=== PATIENT | female | born 1970 | race Caucasian/White ===

== ENCOUNTER 2018-11-10 10:54 | Observation (INO) ==
[2018-11-10] MEDS ORDERED: Aspirin 325 MG TABLET PO ONE (11:17)
[2018-11-10] MEDS ORDERED: Nitroglycerin 0.4 MG TAB.SUBL SL PRN (11:17)
[2018-11-10 11:18] LABS: Basophils # 0.1 K/mcL (0.0-0.2); Basophils % 1.4 %; Eosinophils # 0.1 K/mcL (0.0-0.6); Eosinophils % 2.5 %; Hematocrit 39.4 % (35.3-44.9); Immature Granulocytes % 0.7 % (0-4); Lymphocytes # 1.6 K/mcL (0.6-4.6); Lymphocytes % 28.7 %; Mean Corpuscular Hemoglobin 26.3 pg (28.0-33.3); Mean Corpuscular Volume 79.6 fL (83.0-100.0); Mean Platelet Volume 8.5 fL (9.4-12.4); Monocytes # 0.4 K/mcL (0.0-1.3); Monocytes % 7.6 %; Neutrophils # 3.4 K/mcL (1.6-8.9); Platelet Count 341 K/mcL (140-400); Red Blood Count 4.95 M/mcL (3.82-4.97); Red Cell Distribution Width 14.5 % (11.5-14.5); Segmented Neutrophils % 59.1 %; White Blood Count 5.7 K/mcL (4.3-11.1)
--- NOTE | 2018-11-10 11:27 | Emergency Department Note ---
Disposition Clinical Impression: Hypoxia Chest pain Qualifiers: Chest pain type: unspecified Qualified Code(s): R07.9 - Chest pain, unspecified Disposition: Admitted As Inpatient Condition: Good Referrals: Anastacio Power CNP [Primary Care Provider] - Forms: ED Satisfaction Letter Time of Disposition: 13:05 Chest Pain HPI - General Chief Complaint: ED Chest Pain Stated Complaint: CP Time Seen by Provider: 11/10/18 10:55 Source: patient Mode of arrival: private vehicle Limitations: no limitations Vital Signs Reviewed: Yes Nursing Notes Reviewed: Yes - History of Present Illness HPI Narrative: This is a 48-year-old female with a history of hypertension, obesity who presents with a complaint of chest pain. Patient states her pain began yesterday. Denies any trauma. Describes it as a pressure in the left side of her chest. Today she noted that it felt like it was up into her left neck. She also has some associated shoulder pain but believes this is secondary to moving boxes recently. She was having the chest pain prior to moving the boxes. She is also been somewhat short of breath. She denies any recent illnesses with the exception of a cough. No nausea vomiting lightheadedness or dizziness. She has no prior history of CAD, DVT or PE. Her past medical history is noted for early cardiac disease with an DE in her father in his late 40s as well as the of her paternal grandfather when her father was a teenager. No other complaints. Pt complaint: chest pain Onset (ago): day(s) Duration: constant Onset: during rest Pain Location: left chest Severity: moderate Severity scale (1-10): 5 Quality: aching, heaviness Pain Radiation: neck Improves with: nothing Worsens with: nothing Associated symptoms: Reports: dyspnea. Denies: nausea, vomiting, diaphoresis Treatments prior to arrival chest pain: none - Related Data On Oral Contraceptives: No Home Medications Medication Instructions Recorded Confirmed Sertraline [Zoloft] 100 mg PO DAILY 11/10/18 11/10/18 Tramadol HCl [Ultram] 50 mg PO TID PRN 11/10/18 11/10/18 hydroCHLOROthiazide 25 mg PO DAILY 11/10/18 11/10/18 [Hydrochlorothiazide] Allergies Allergy/AdvReac Type Severity Reaction Status Date / Time No Known Allergies Allergy Verified 11/10/18 10:57 All systems ED: reviewed and negative except as stated. Constitutional: Denies: fever, chills Cardiovascular: Reports: chest pain Respiratory: Reports: cough, dyspnea Gastrointestinal: Denies: abdominal pain, nausea, vomiting, diarrhea Musculoskeletal: Reports: neck pain Chest Pain PMH - Past Medical History Medical history: Reports: hypertension Psychiatric history: Reports: no psych history - Social History Smoking Status: Never smoker Alcohol use: Reports: none Drug use: Reports: none Physical Exam - General Limitations: no limitations General appearance: alert, in no apparent distress - Head Head exam: atraumatic, normocephalic, normal inspection - Eye Eye exam: Present: normal appearance - ENT ENT exam: normal exam - Neck Neck exam: Present: normal inspection - Chest Chest inspection: Present: normal inspection, symmetric chest wall rise. Absent: tenderness, rash - Respiratory Respiratory exam: Present: normal lung sounds bilaterally - Cardiovascular Cardiovascular exam: Present: regular rate, normal rhythm, irregular rhythm - Abdominal Exam Abdominal exam: Present: soft, Non-Tender. Absent: tenderness, distention, guarding, rigidity - Extremities Exam Extremities exam: Present: normal inspection, full ROM - Expanded Upper Extremity Exam Shoulder exam: Present: normal inspection, full ROM Arm exam: Present: normal inspection, full ROM Elbow exam: Present: normal inspection, full ROM Forearm/Wrist exam: Present: normal inspection, full ROM Hand exam: Present: normal inspection, full ROM Vascular exam: Normal: radial pulse - Expanded Lower Extremity Exam Hip/Pelvis exam: Present: normal inspection, full ROM Upper leg exam: Present: normal inspection, full ROM Knee exam: Present: normal inspection, full ROM Lower leg exam: Present: normal inspection, full ROM Ankle exam: Present: normal inspection, full ROM Foot/toe exam: Present: normal inspection, full ROM - Skin Skin exam: Present: warm, dry Course Course Narrative: Seen and examined. With troponin pending the patient already has a moderate risk for heart score of 4. Plan for EKG, chest x-ray and labs. Patient given aspirin and nitroglycerin. I anticipate admission. - Reevaluation(s) Reevaluation #1: Patient was hypoxic on re-evaluation. 2L NC applied. CTA pending. Reevaluation #2: CTA negative for PE. I saw what I thought was a potential filling defect and spoke with radiology who reports its in the pulmonary vein and not a PE. Vital Signs Temperature 98.7 F 11/10/18 10:56 Pulse Rate 71 11/10/18 10:56 Respiratory Rate 16 11/10/18 10:56 Blood Pressure 141/93 11/10/18 10:56 O2 Sat by Pulse Oximetry 96 11/10/18 10:56 Temperature 98.7 F 11/10/18 11:19 Pulse Rate 63 11/10/18 12:06 Respiratory Rate 18 11/10/18 12:06 Blood Pressure 128/74 11/10/18 12:06 O2 Sat by Pulse Oximetry 96 11/10/18 12:06 Oxygen Delivery Oxygen Delivery Room Air Chest Pain - MDM Narrative Medical decision making narrative: 48-year-old female presenting with chest pain and shortness of breath for 1 day. EKG, chest x-ray and labs are grossly unremarkable. Patient was given aspirin one nitroglycerin with some improvement of her pain but she became somewhat hypotensive. She did desaturate to 89% while here with a great waveform. CTA of the chest shows no PE. She is currently on oxygen supplementation. She is admitted to the hospitalist service for further management. - Lab Data Lab results reviewed: Yes I reviewed the patient's lab results. Result diagrams: 11/10/18 11:09 11/10/18 11:09 Lab Results 11/10/18 11/10/18 11/10/18 Range/Units 11:09 11:09 11:09 WBC 5.7 (4.3-11.1) K/mcL RBC 4.95 (3.82-4.97) M/mcL Hgb 13.0 (11.5-15.4) g/dL Hct 39.4 (35.3-44.9) % MCV 79.6 L (83.0-100.0) fL MCH 26.3 L (28.0-33.3) pg MCHC 33.0 (31.6-35.5) g/dL RDW 14.5 (11.5-14.5) % Plt Count 341 (140-400) K/mcL MPV 8.5 L (9.4-12.4) fL Immature Gran % 0.7 (0-4) % Seg Neutrophils % 59.1 % Lymphocytes % 28.7 % Monocytes % 7.6 % Eosinophils % 2.5 % Basophils % 1.4 % Neutrophils # 3.4 (1.6-8.9) K/mcL Lymphocytes # 1.6 (0.6-4.6) K/mcL Monocytes # 0.4 (0.0-1.3) K/mcL Eosinophils # 0.1 (0.0-0.6) K/mcL Basophils # 0.1 (0.0-0.2) K/mcL PT 11.3 (9.4-12.1) Seconds INR 1.0 APTT 40.2 H (26.0-36.0) Seconds Sodium (136-145) mEq/L Potassium (3.5-5.1) mEq/L Chloride (98-107) mEq/L Carbon Dioxide (23-29) mEq/L BUN (6-20) mg/dL Creatinine (0.60-1.20) mg/dL Est GFR ( Amer) (> 60) Est GFR (Non-Af Amer) (> 60) BUN/Creatinine Ratio (6-26) Glucose (70-105) mg/dL Calculated Osmolality (280-300) Calcium (8.6-10.3) mg/dL Troponin I (< 0.04) ng/mL B-Natriuretic Peptide 17 (Less than 100) pg/mL 11/10/18 Range/Units 11:09 WBC (4.3-11.1) K/mcL RBC (3.82-4.97) M/mcL Hgb (11.5-15.4) g/dL Hct (35.3-44.9) % MCV (83.0-100.0) fL MCH (28.0-33.3) pg MCHC (31.6-35.5) g/dL RDW (11.5-14.5) % Plt Count (140-400) K/mcL MPV (9.4-12.4) fL Immature Gran % (0-4) % Seg Neutrophils % % Lymphocytes % % Monocytes % % Eosinophils % % Basophils % % Neutrophils # (1.6-8.9) K/mcL Lymphocytes # (0.6-4.6) K/mcL Monocytes # (0.0-1.3) K/mcL Eosinophils # (0.0-0.6) K/mcL Basophils # (0.0-0.2) K/mcL PT (9.4-12.1) Seconds INR APTT (26.0-36.0) Seconds Sodium 136 (136-145) mEq/L Potassium 4.0 (3.5-5.1) mEq/L Chloride 99 (98-107) mEq/L Carbon Dioxide 29 (23-29) mEq/L BUN 17 (6-20) mg/dL Creatinine 0.74 (0.60-1.20) mg/dL Est GFR ( Amer) > 60 (> 60) Est GFR (Non-Af Amer) > 60 (> 60) BUN/Creatinine Ratio 23 (6-26) Glucose 108 H (70-105) mg/dL Calculated Osmolality 284 (280-300) Calcium 10.2 (8.6-10.3) mg/dL Troponin I < 0.03 (< 0.04) ng/mL B-Natriuretic Peptide (Less than 100) pg/mL - Radiology Data Radiology results reviewed: Yes I reviewed the patient's radiology results. Chest X-Ray 11/10/18 10:56 IMPRESSION: 1. No active pulmonary disease. D/ / Suraj Barone MD / Suraj Barone MD Interpreting Provider: Suraj Barone MD Chest X-Ray 11/10/18 10:56 IMPRESSION: 1. No active pulmonary disease. D/ / Suraj Barone MD / Suraj Barone MD Interpreting Provider: Suraj Barone MD Chest CTA 11/10/18 12:03 IMPRESSION: No pulmonary embolism or acute pulmonary abnormality. Suspected mild hepatic steatosis. D/ / Julio Blackwood MD / Julio Blackwood MD Interpreting Provider: Julio Blackwood MD - EKG Data EKG attestation: Yes I reviewed and interpreted this EKG. EKG results narrative: EKG demonstrates a sinus rhythm with rate of 63 bpm. Normal axis. Normal intervals. Normal R-wave progression. No gross ST elevations or depressions. No acute ischemic findings. No previous EKG for comparison. Heart Score - Score History: Moderately Suspicious EKG: Normal Age: 45-65 Risk Factors: Equal/Greater than 3 risk factor or history of atherosclerotic disease Troponin: Less than normal limit HEART Score Total: 4 S.[email or web address] - Sheyla.[email or web address] Situation: Demographics, MOA Background: Presenting Complaint, Relevant PMH, Meds, & Allergies Assessment: Course and respsone to treatment, Exam Concerns, Patient/Family Expectation, Pertinant Lab Results Recommendation: Barrier(s) to disposition, Recommendation based on pending studies, treatments, or consults Hayden Report Given to: Dr. Ismael Blake Repor Time: 13:05
[2018-11-10 11:29] LABS: Prothrombin Time 11.3 Seconds (9.4-12.1)
[2018-11-10 11:32] LABS: Activated Partial Thrombo Time 40.2 Seconds (26.0-36.0)
[2018-11-10 11:39] LABS: BUN/Creatinine Ratio 23 (6-26); Blood Urea Nitrogen 17 mg/dL (6-20); Calcium 10.2 mg/dL (8.6-10.3); Carbon Dioxide 29 mEq/L (23-29); Chloride 99 mEq/L (98-107); Glucose 108 mg/dL (70-105); Osmolality,Calculated 284 (280-300); Sodium 136 mEq/L (136-145); eGFR For African Americans > 60 (> 60); eGFR For Non-African Americans > 60 (> 60)
[2018-11-10 11:40] LABS: Troponin I < 0.03 ng/mL (< 0.04)
[2018-11-10] MEDS ORDERED: Isovue-370 500 ML BOTTLE IVP ONE (12:03)
[2018-11-10] MEDS ORDERED: MOM Conc 10 ML UD.LIQ PO PRN (13:11)
[2018-11-10] MEDS ORDERED: Naloxone 0.4 MG/ML INJ IVP PRN (13:11)
[2018-11-10] MEDS ORDERED: traMADol 50 MG TABLET PO PRN (13:11)
[2018-11-10] MEDS ORDERED: Mag Hydrox/Al Hydrox/Simeth 30 ML UDC PO PRN (13:11)
[2018-11-10] MEDS ORDERED: Ondansetron 4 MG/2 ML VIAL IVP PRN (13:11)
[2018-11-10] MEDS ORDERED: *HR* Promethazine 25 MG/ML VIAL IVP PRN (13:11)
--- NOTE | 2018-11-10 13:36 | Internal Med History&Physical ---
Date of Encounter: 11/10/18 Time of Encounter: 13:30 Internal Medicine - H&P: HPI Admitted From: Home Plans for Post Hospital Care: Home History of present illness: Ms. Contreras is a 48 year old female with severe hypertension and obesity who presented with left-sided chest pain. Patient was helping her moving several heavy villagran yesterday, she developed mild shortness of breath with chest heaviness. She took a break and these symptoms disappeared. This morning, when she woke up, she stated she did not feel well, besides a chest heaviness, she also had pain on the left neck. Patient reported significant family history of cardiovascular disease, grandfather of from heart attack, her father had a heart attack in his late 40s. She decided to go to ED for evaluation. In the ED, her blood pressure was slightly elevated, labs were unremarkable including a negative troponin. EKG has no acute ST-T change. CT of the chest h as no pulmonary embolism. She received 1 dose of nitroglycerin without relief of chest pain, rather causes headache. 1 dose of aspirin at 325 mg was administered. She is admitted for further evaluation and management. CODE STATUS discussed with patient, she will be full code while in the hospital. Past Med Surg Social Fam HX - Past Medical History Medical history: hypertension Psychiatric history: no psych history - Social History Smoking Status: Never smoker Smokeless Tobacco Status: No Alcohol use: none Drug use: none Internal Medicine - H&P: Meds Sertraline [Zoloft] 100 mg PO DAILY 11/10/18 [History] Tramadol HCl [Ultram] 50 mg PO TID PRN 11/10/18 [History] hydroCHLOROthiazide [Hydrochlorothiazide] 25 mg PO DAILY 11/10/18 [History] Allergy/AdvReac Type Severity Reaction Status Date / Time No Known Allergies Allergy Verified 11/10/18 10:57 All Systems PM: A 10-system review of systems was performed and is negative for pertinent findings except as documented above in the HPI. Review of systems: REVIEW OF SYSTEMS: CONSTITUTIONAL: No weight loss, fever, chills, weakness or fatigue. HEENT: Eyes: No visual loss, blurred vision, double vision or yellow sclerae. Ears, Nose, Throat: No hearing loss, sneezing, congestion, runny nose or sore t hroat. SKIN: No rash or itching. CARDIOVASCULAR: see HPI. RESPIRATORY: No shortness of breath, cough or sputum. GASTROINTESTINAL: No anorexia, nausea, vomiting or diarrhea. No abdominal pain or blood. GENITOURINARY: No dysuria, urgency, or frequency. NEUROLOGICAL: No headache, dizziness, syncope, paralysis, ataxia, numbness or tingling in the extremities. No change in bowel or bladder control. MUSCULOSKELETAL: No muscle, back pain, joint pain or stiffness. HEMATOLOGIC: No anemia, bleeding or bruising. LYMPHATICS: No enlarged nodes. No history of splenectomy. PSYCHIATRIC: No history of depression or anxiety. ENDOCRINOLOGIC: No reports of sweating, cold or heat intolerance. No polyuria or polydipsia. - Constitutional Vitals: Temp Pulse Resp BP Pulse Ox 98.7 F 63 18 128/74 96 11/10/18 11:19 11/10/18 12:06 11/10/18 12:06 11/10/18 12:11/10/18 12:06 General appearance: Present: A&O X 3 Exam: PHYSICAL EXAMINATION: GENERAL APPEARANCE: The patient is alert, oriented and in no acute distress. HEENT: Head is normocephalic. The sinuses are nontender. Pupils are equal and reactive. The nares are patent. Oropharynx clear without lesions. NECK: Supple without lymphadenopathy. HEART: Regular rate and rhythm. LUNGS: No crackles or wheezes are heard. ABDOMEN: Soft, nontender, nondistended with good bowel sounds heard. Inguinal area is normal. EXTREMITIES: Without cyanosis, clubbing or edema. NEUROLOGICAL: Gross nonfocal. SKIN: Warm and dry without any rash. Internal Med - H&P Results - Labs CBC & Chem 7: 11/10/18 11:09 11/10/18 11:09 Labs: Short CBC 11/10/18 Range/Units 11:09 WBC 5.7 (4.3-11.1) K/mcL Hgb 13.0 (11.5-15.4) g/dL Hct 39.4 (35.3-44.9) % Plt Count 341 (140-400) K/mcL Neutrophils # 3.4 (1.6-8.9) K/mcL BMP 11/10/18 11:09 Sodium 136 Potassium 4.0 Chloride 99 Carbon Dioxide 29 BUN 17 Creatinine 0.74 Glucose 108 H Calcium 10.2 Cardiac Enzymes 11/10/18 Range/Units 11:09 Troponin I < 0.03 (< 0.04) ng/mL - Impressions ITS Impressions Chest X-Ray 11/10/18 10:56 IMPRESSION: 1. No active pulmonary disease. D/ / Suraj Barone MD / Suraj Barone MD Interpreting Provider: Suraj Barone MD Chest CTA 11/10/18 12:03 IMPRESSION: No pulmonary embolism or acute pulmonary abnormality. Suspected mild hepatic steatosis. D/ / Julio Blackwood MD / Julio Blackwood MD Interpreting Provider: Julio Blackwood MD - Assessment and Plan (1) Chest pain Current Visit: Yes Status: Acute Assessment and plan: 48-year-old female with no prior history of CAD presented with left-sided chest pain after moving heavy objects. He does have significant family history of cardiovascular disease including father had a UT in his late of 40s. Her cardiovascular risk factors include obesity and hypertension. ED workup showed a negative troponin, unremarkable EKG, negative PE on CTA of the chest. She received 1 dose of aspirin in the ED. We will continue cycle troponin, EKG as needed, telemetry monitoring. Stress test and echocardiogram in the morning. Qualifiers: Chest pain type: unspecified Qualified Code(s): R07.9 - Chest pain, unspecified (2) Hypertension Current Visit: No Status: Chronic Assessment and plan: Continue monitoring blood pressure, resume home medications, adjust medication if indicated. Qualifiers: Hypertension type: essential hypertension Qualified Code(s): I10 - Essential (primary) hypertension (3) Obesity (BMI 30-39.9) Current Visit: No Status: Chronic Assessment and plan: Control discussed with patient. (4) DVT prophylaxis Current Visit: Yes Status: Acute Assessment and plan: Heparin subcutaneous. - Time Spent With Patient Total time spent is greater than 50% in coordination of care (as documented) at patient's floor/unit and/or counseling patient: Greater than 35 minutes
[2018-11-10] MEDS: Acetaminophen 325 MG TABLET PO PRN (14:51)
--- NOTE | 2018-11-10 16:18 | Electrocardiograph Report ---
[address] [address] Test Date: 2018-11-10 Pat Name: Leyla Contreras Department: [id number] Room: 3B16 Gender: F Application Developer: : 1970 Requested By: Kit Sterling Order Number: [id number] Reading MD: Hira Sheppard Measurements Intervals [place] Rate: 63 P: 7 FL: 147 QRS: -16 QRSD: 88 T: 42 QT: 420 QTc: 430 Interpretive Statements Sinus rhythm Electronically Signed On 11-10-2018 16:16:46 EDT by Hira Sheppard
[2018-11-10] MEDS: *HR* Heparin 5,000 UNIT/ML VIAL SQ SCH (17:03)
[2018-11-10] MEDS ORDERED: hydroCHLOROthiazide 25 MG TABLET PO SCH (21:00)
[2018-11-11 01:06] LABS: Basophils # 0.1 K/mcL (0.0-0.2); Basophils % 1.2 %; Eosinophils # 0.2 K/mcL (0.0-0.6); Eosinophils % 2.7 %; Hematocrit 38.5 % (35.3-44.9); Hemoglobin 12.5 g/dL (11.5-15.4); Immature Granulocytes % 0.7 % (0-4); Lymphocytes # 1.8 K/mcL (0.6-4.6); Lymphocytes % 32.4 %; Mean Corpuscular HGB Conc 32.5 g/dL (31.6-35.5); Mean Corpuscular Hemoglobin 26.4 pg (28.0-33.3); Mean Corpuscular Volume 81.2 fL (83.0-100.0); Monocytes # 0.5 K/mcL (0.0-1.3); Monocytes % 8.7 %; Neutrophils # 3.1 K/mcL (1.6-8.9); Platelet Count 329 K/mcL (140-400); Red Blood Count 4.74 M/mcL (3.82-4.97); Red Cell Distribution Width 14.5 % (11.5-14.5); Segmented Neutrophils % 54.3 %; White Blood Count 5.6 K/mcL (4.3-11.1)
[2018-11-11 01:25] LABS: Alanine Aminotransferase 15 Units/L (7-52); Albumin 4.4 g/dL (3.5-5.7); Albumin/Globulin Ratio 1.8 (1.1-2.2); Alkaline Phosphatase 68 Units/L (34-104); Aspartate Amino Transferase 18 Units/L (13-39); BUN/Creatinine Ratio 24 (6-26); Bilirubin,Total 0.3 mg/dL (0.3-1.0); Blood Urea Nitrogen 21 mg/dL (6-20); Calcium 9.6 mg/dL (8.6-10.3); Carbon Dioxide 30 mEq/L (23-29); Chloride 100 mEq/L (98-107); Chol/HDL Ratio 5.4 (0-4.9); Cholesterol 234 mg/dL (< 200); Globulin 2.5 g/dL (2.4-3.5); Glucose 151 mg/dL (70-105); HDL Cholesterol 43 mg/dL (40-59); LDL Cholesterol,Calculated 122 mg/dL (0-99); Osmolality,Calculated 294 (280-300); Potassium 3.4 mEq/L (3.5-5.1); Sodium 139 mEq/L (136-145); Total Protein 6.9 g/dL (6.4-8.9); Triglycerides 343 mg/dL (< 150); eGFR For African Americans > 60 (> 60); eGFR For Non-African Americans > 60 (> 60)
[2018-11-11] MEDS: *HR* Heparin 5,000 UNIT/ML VIAL SQ SCH (05:42)
[2018-11-11 10:59] VITALS: BP 111/75
[2018-11-11] MEDS: Acetaminophen 325 MG TABLET PO PRN (12:18)
--- NOTE | 2018-11-11 14:10 | Discharge Summary ---
- NOTES TO OUTPATIENT PROVIDER Notes to Outpatient Provider: Presented with CP Cardiac workup negative - including stress test- suggest possible EGD as outpatient. Placed on statin monitor lipid profile as outpatient Date of Encounter: 11/11/18 Time of Encounter: 14:08 - Discharge Diagnosis (1) Chest pain Priority: Primary Status: Acute Qualifiers: Chest pain type: unspecified Qualified Code(s): R07.9 - Chest pain, unspecified (2) Hypertension Priority: Secondary Status: Chronic Qualifiers: Hypertension type: essential hypertension Qualified Code(s): I10 - Essential (primary) hypertension (3) Obesity (BMI 30-39.9) Priority: Secondary Status: Chronic Hospital course: Ms. Contreras is a 48 year old female past medical history of hypertension and obesity presented to [facility] after experiencing left-sided chest pain-she was moving heavy pieces would develop mild shortness of breath or chest heaviness symptoms did improve with rest. She then awoke the next day with feeling of not feeling well and continued chest heaviness radiating to her left neck. She has a significant family history of cardiovascular disease. EKG with no ST-T wave abnormalities CT of chest with pulmonary embolism patient did receive nitroglycerin however this did not relieve her chest pain. Chest x-ray with no acute process Cardiac echo showed EF of 60-65% normal LV chamber size wall thickness and function normal left ventricular diastolic function normal right ventricular structure and function no evidence of pulmonary hypertension moderate tricuspid regurgitation. Patient did undergo a cardiac stress test which was negative for any ischemia or infarct. She has been chest pain-free during this stay vital signs are currently stable. She did have elevated in lipid profile and has been placed on a moderate statin atorvastatin 20 mg daily patient's advised to follow with primary care she verbalized understanding. Encouraged lifestyle changes including exercise and low-fat low-cholesterol diet. - Time Spent with Patient Total time spent providing and/or coordinating discharge services: - Discharge Medications Prescriptions: New Atorvastatin [Lipitor] 20 mg PO HS 30 Days #30 tablet Continued Tramadol HCl [Ultram] 50 mg PO TID PRN PRN Reason: Pain Sertraline [Zoloft] 100 mg PO HS hydroCHLOROthiazide [Hydrochlorothiazide] 25 mg PO HS Multivitamin No.58/Vit D3/K [Abdek Multivitamin Softgel] 1 tab PO HS Home Medications: Multivitamin No.58/Vit D3/K [Abdek Multivitamin Softgel] 1 tab PO HS 11/10/18 [History] Sertraline [Zoloft] 100 mg PO HS 11/10/18 [History] Tramadol HCl [Ultram] 50 mg PO TID PRN 11/10/18 [History] hydroCHLOROthiazide [Hydrochlorothiazide] 25 mg PO HS 11/10/18 [History] Atorvastatin [Lipitor] 20 mg PO HS 30 Days #30 tablet 11/11/18 [Rx] Allergies/Adverse Reactions: Allergy/AdvReac Type Severity Reaction Status Date / Time No Known Allergies Allergy Verified 11/10/18 21:20 Date of admission: 11/10/18 13:13 Primary care physician: Anastacio Power CNP Discharging clinician: Sandy Diaz Anticipated date of discharge: 11/11/18 - Constitutional Vitals: Temp Pulse Resp BP Pulse Ox 98.3 F 95 16 111/75 93 11/11/18 10:55 11/11/18 10:55 11/11/18 10:55 11/11/18 10:55 11/11/18 10:55 General appearance: Present: A&O X 3 Exam: Skin: Free of rash and discoloration. Eyes: Sclera is white. There is no discharge from eyes. ENMT: Oral/pharyngeal mucosa is normal in appearance. There is no discharge from nose or ears. Respiratory: Normal breath sounds with no crackles and wheezes bilaterally. CV: Heart is regular with no gallop or murmur. GI: Abdomen is flat and soft with no palpable mass or visceromegaly. : There is no tenderness in patient's flanks bilaterally. Neuro exam: He has good strength in upper and lower extremities. He has normal eye movements. Psychiatric: He has normal affect. His thought process is appropriate to the situation. - Patient Status Disposition: Home, Self-Care Condition: Good Functional capacity at discharge: independent ambulation Overall status at discharge: patient is back to baseline - Discharge Instructions Follow Up With: Anastacio Power CNP [Primary Care Provider] - 11/16/18 11:30 am - Diet and Activity Activity: increase activity as tolerated Diet: low fat, low cholesterol
== END 2018-11-11 15:30 | disposition home or self-care (01) ==
LOC: EMEROOARM 10:54 → 3BNU 10:54
PROVIDERS: ADMIT Internal Medicine; ATTEND Internal Medicine

== ENCOUNTER 2020-11-26 05:15 | Observation (INO) ==
[2020-11-26] MEDS ORDERED: Isovue-370 500 ML BOTTLE IVP ONE (05:35)
[2020-11-26] MEDS ORDERED: Ondansetron 4 MG/2 ML VIAL IVP ONE (05:36)
[2020-11-26] MEDS ORDERED: *HR* HYDROmorphone (PF) 1 MG/ML SYRINGE IVP ONE ×3 (05:36→07:17)
[2020-11-26 06:12] LABS: Basophils # 0.1 K/mcL (0.0-0.2); Basophils % 0.8 %; Eosinophils # 0.2 K/mcL (0.0-0.6); Eosinophils % 1.6 %; Hematocrit 39.9 % (35.3-44.9); Hemoglobin 13.6 g/dL (11.5-15.4); Immature Granulocytes % 0.4 % (0-4); Lymphocytes # 2.9 K/mcL (0.6-4.6); Lymphocytes % 27.7 %; Mean Corpuscular HGB Conc 34.1 g/dL (31.6-35.5); Mean Corpuscular Hemoglobin 27.6 pg (28.0-33.3); Mean Corpuscular Volume 80.9 fL (83.0-100.0); Monocytes # 0.9 K/mcL (0.0-1.3); Monocytes % 8.6 %; Neutrophils # 6.3 K/mcL (1.6-8.9); Platelet Count 342 K/mcL (140-400); Red Blood Count 4.93 M/mcL (3.82-4.97); Red Cell Distribution Width 14.2 % (11.5-14.5); Segmented Neutrophils % 60.9 %; White Blood Count 10.3 K/mcL (4.3-11.1)
[2020-11-26 06:27] LABS: BUN/Creatinine Ratio 16 (6-26); Blood Urea Nitrogen 12 mg/dL (6-20); Calcium 11.2 mg/dL (8.6-10.3); Carbon Dioxide 27 mEq/L (23-29); Chloride 99 mEq/L (98-107); Glucose 135 mg/dL (70-105); Osmolality,Calculated 290 (280-300); Potassium 3.5 mEq/L (3.5-5.1); Sodium 139 mEq/L (136-145); eGFR For African Americans > 60 (> 60); eGFR For Non-African Americans > 60 (> 60)
[2020-11-26] MEDS ORDERED: 0.9 % Sodium Chloride 1,000 ML IVC ONE (07:56)
[2020-11-26] MEDS ORDERED: Ondansetron 4 MG/2 ML VIAL IVP PRN (09:00)
[2020-11-26] MEDS ORDERED: Naloxone 0.4 MG/ML INJ IVP PRN (09:00)
[2020-11-26] MEDS ORDERED: Acetaminophen 325 MG TABLET PO PRN (09:00)
[2020-11-26] MEDS ORDERED: 0.9 % Sodium Chloride 2,000 ML IVC SCH (09:00)
[2020-11-26] MEDS ORDERED: *HR* FentaNYL (PF) 100 MCG/2 ML VIAL IVP PRN (09:02)
[2020-11-26] MEDS ORDERED: D5% in Water 1,000 ML IVC PRN (09:11)
[2020-11-26] MEDS ORDERED: Dextrose Gel 15 GM/37.5 ML TUBE PO PRN ×2 (09:11)
[2020-11-26] MEDS ORDERED: *HR* Dextrose 50 % in Water (Syg) 50 ML SYRINGE IVP PRN (09:11)
[2020-11-26] MEDS: 0.9 % Sodium Chloride 1,000 ML IVC SCH ×2 (09:50→20:50)
[2020-11-26] MEDS: Morphine Sulfate 2 MG/ML SYRINGE IVP PRN ×4 (10:12→22:13)
[2020-11-26 10:37] LABS: Bilirubin,Urine Negative (Negative); Blood,Urine Moderate (Negative); Clarity,Urine Clear (Clear); Color,Urine Light-Yellow (Yellow); Glucose,Urine (UA) Normal (Normal); Ketones,Urine Negative (Negative); Leukocyte Esterase,Urine Negative (Negative); Nitrite,Urine Negative (Negative); PH,Urine 7.5 pH Units (5.0-8.0); Protein,Urine Trace mg/dL (Neg-Trace); RBC,Urine TNTC per hpf (0-3); Specific Gravity,Urine > 1.030 (1.010-1.025); Squamous Epithelial Cell,Urine Few per hpf (None-Few); Urobilinogen,Urine Normal (Normal); WBC,Urine 0-3 per hpf (0-3)
[2020-11-26 10:56] LABS: Estimated Average Glucose 134 mg/dl; Hemoglobin A1C 6.3 %
[2020-11-26] MEDS: Insulin LISPRO 300 UNITS/3 ML VIAL SUBQ SCH ×2 (13:44→16:59)
[2020-11-26] MEDS ORDERED: Famotidine 20 MG TABLET PO SCH (21:00)
[2020-11-27] MEDS: Insulin LISPRO 300 UNITS/3 ML VIAL SUBQ SCH ×3 (00:21→12:01)
[2020-11-27] MEDS: *HR* Heparin 5,000 UNIT/ML VIAL SQ SCH ×2 (00:23→12:12)
[2020-11-27] MEDS: Morphine Sulfate 2 MG/ML SYRINGE IVP PRN (05:53)
[2020-11-27 05:55] LABS: Basophils # 0.1 K/mcL (0.0-0.2); Basophils % 1.3 %; Eosinophils # 0.2 K/mcL (0.0-0.6); Eosinophils % 3.4 %; Immature Granulocytes % 0.6 % (0-4); Lymphocytes % 32.5 %; Mean Corpuscular HGB Conc 32.4 g/dL (31.6-35.5); Mean Corpuscular Hemoglobin 27.5 pg (28.0-33.3); Mean Corpuscular Volume 84.9 fL (83.0-100.0); Mean Platelet Volume 8.8 fL (9.4-12.4); Monocytes # 0.6 K/mcL (0.0-1.3); Neutrophils # 3.3 K/mcL (1.6-8.9); Platelet Count 251 K/mcL (140-400); Red Blood Count 4.36 M/mcL (3.82-4.97); Red Cell Distribution Width 14.6 % (11.5-14.5); Segmented Neutrophils % 52.2 %; White Blood Count 6.2 K/mcL (4.3-11.1)
[2020-11-27 06:16] LABS: BUN/Creatinine Ratio 15 (6-26); Blood Urea Nitrogen 11 mg/dL (6-20); Calcium 9.2 mg/dL (8.6-10.3); Carbon Dioxide 31 mEq/L (23-29); Chloride 104 mEq/L (98-107); Glucose 113 mg/dL (70-105); Osmolality,Calculated 294 (280-300); Potassium 3.3 mEq/L (3.5-5.1); Sodium 142 mEq/L (136-145); eGFR For African Americans > 60 (> 60); eGFR For Non-African Americans > 60 (> 60)
[2020-11-27] MEDS ORDERED: hydroCHLOROthiazide 25 MG TABLET PO SCH (09:00)
[2020-11-27] MEDS ORDERED: Isovue-300 50ML VIAL ONE (09:13)
[2020-11-27] MEDS: 0.9 % Sodium Chloride 1,000 ML IVC SCH (09:18)
[2020-11-27] MEDS ORDERED: Ondansetron 4 MG/2 ML VIAL ONE (09:21)
[2020-11-27] MEDS ORDERED: *HR* FentaNYL (PF) 100 MCG/2 ML VIAL ONE ×2 (09:21→09:55)
[2020-11-27] MEDS ORDERED: Lidocaine -MPF 2% 2 ML VIAL ONE (09:21)
[2020-11-27] MEDS ORDERED: *HR* Propofol 200 MG/20 ML VIAL IVP ONE (09:22)
[2020-11-27] MEDS: *HR* HYDROmorphone PF 0.5 MG/0.5 ML SYRINGE IVP PRN ×4 (10:20→10:54)
[2020-11-27] MEDS ORDERED: Ringers Solution, Lactated 1,000 ML ONE (11:10)
[2020-11-27 11:25] VITALS: TEMP 98.1
[2020-11-27 14:39] VITALS: O2SAT 93
[2020-11-27 14:46] VITALS: BP 134/90; PULSE 76
== END 2020-11-27 15:31 | disposition home or self-care (01) ==
LOC: 3BNU 05:15 → EMEROOARM 05:15 → SUATTDRO 08:23 → 3BNU 09:05
PROVIDERS: ADMIT General Practice; ATTEND Registered Nurse